=== PATIENT | female | born 1985 | race Caucasian/White ===

== ENCOUNTER 2017-06-25 13:56 | Emergency (ER) | payer SELFPAY ==
[2017-06-25 14:18] VITALS: TEMP 97; BMI 43.9
[2017-06-25] MEDS ORDERED: DIPHTH,PERTUSS(ACELL),TET 0.5 ML DISP.SYRIN IM ONE (14:22)
--- NOTE | 2017-06-25 14:22 | PDOC ---
Rapid Medical Evaluation Chief Complaint: Laceration Time Seen by Provider: 06/25/17 14:19 Medical Evaluation: Allergies Allergy/AdvReac Type Severity Reaction Status Date / Time No Known Allergies Allergy Verified 06/25/17 14:18 Vital Signs Temp Pulse Resp BP Pulse Ox 97 F L 114 H 20 143/114 99 06/25/17 14:13 06/25/17 14:13 06/25/17 14:13 06/25/17 14:13 06/25/17 14:13 06/25/17 14:19 The patient presents with a chief complaint of: Cut to the R ear. Pt. hit ear on end table. No LOC. Also R ear pain I have performed a brief in-person evaluation of this patient; Pertinent physical exam findings: 3cm laceration to R ear; cartilage involvement ? I have ordered the following: Boostrix The patient will proceed to the ED for further evaluation.
--- NOTE | 2017-06-25 15:02 | PDOC ---
History of Present Illness - General Chief Complaint: Laceration Stated Complaint: LACERATION Time Seen by Provider: 06/25/17 14:19 History Source: Patient Exam Limitations: No Limitations - History of Present Illness Initial Comments: This is a 31 YOF with h/o PCOS and pre-diabetes who presents c/o fall onto end table and right ear laceration sustained at about 1:30 pm today. She tripped on her son's X-box cable and fell, hitting her right ear on a wooden end table. The ear laceration bled immediately but the patient did not lose consciousness, vomiting, have altered mental status or confusion, hit her head, hurt her neck, or have numbness, tingling, focal weakness, difficulty walking/balancing, or other symptoms. She has a known right otitis media and is taking Amoxicillin for this, but otherwise has been feeling well lately. Her last Tdap was an unknown amount of time ago. Past History - Past Medical History Allergies/Adverse Reactions: Allergies Allergy/AdvReac Type Severity Reaction Status Date / Time No Known Allergies Allergy Verified 06/25/17 14:18 Home Medications: Ambulatory Orders Amoxicillin/Potassium Clav [Augmentin 500-125 Tablet] 1 each PO BID #10 tablet 06/25/17 Sertraline HCl [Zoloft -] 50 mg PO DAILY 06/25/17 COPD: No Diabetes: Yes Psychiatric Problems: Yes (depression) - Suicide/Smoking/Psychosocial Hx Smoking History: Never smoked Review of Systems - Review of Systems Able to Perform ROS?: Yes Constitutional: No: Chills, Fever, Unexplained wgt Loss HEENTM: Yes: Other (right external ear laceration, right middle ear infection). No: Nose Congestion, Throat Pain Respiratory: No: Cough, Shortness of Breath Cardiac (ROS): No: Chest Pain, Palpitations ABD/GI: No: Constipated, Diarrhea, Nausea, Vomiting : No: Burning, Dysuria Musculoskeletal: No: Back Pain, Neck Pain Integumentary: No: Bruising, Rash Neurological: No: Headache, Numbness, Tingling, Weakness, Dizziness Endocrine: No: Unexplained Weight Gain, Unexplained Weight Loss *Physical Exam - Vital Signs Last Vital Signs Temp Pulse Resp BP Pulse Ox 97 F L 114 H 20 143/114 99 06/25/17 14:13 06/25/17 14:13 06/25/17 14:13 06/25/17 14:13 06/25/17 14:13 Procedures - Laceration/Wound Repair Right Ear Wound Length: 2.6 to 5.0 cm Wound Explored: clean Wound's Depth, Shape: irregular Irrigated w/ Saline: Yes Betadine Prep: No Anesthesia: 1% Lidocaine w/ Epi Amount of Anesthetic (ccs): 5 Wound Repaired With: Sutures Suture Size/Type: 5:0, proline Layer Closure: Yes (cartilage) Deep Layer Suture Size/Type: 5:0, vycril Number of Deep Layer Sutures: 2 Splint Applied: Yes Type of Splint Applied: ear splint to prevent auricular hematoma Sling Applied: No *DC/Admit/Observation/Transfer Diagnosis at time of Disposition: Laceration of ear Qualifiers: Encounter type: initial encounter Laterality: right Qualified Code(s): S01.311A - Laceration without foreign body of right ear, initial encounter - Discharge Dispostion Disposition: HOME Condition at time of disposition: Stable Admit: No - Prescriptions Prescriptions: Amoxicillin/Potassium Clav [Augmentin 500-125 Tablet] 1 each PO BID #10 tablet - Referrals Referrals: Jorge Reynoso [Primary Care Provider] - - Patient Instructions Printed Discharge Instructions: DI for Laceration Repair Additional Instructions: You were seen in the ER for an ear laceration which involved the cartilage. We did a nerve block and also put a small amount of local anesthetic in the ear. We put dissolvable suture into the cartilage to keep it together in the right places. We also sutured the ear skin closed using a running suture. We put an ear splint on the ear (wrapped around your head) to prevent cauliflower ear. Please leave this ear splint on for two days and keep it clean and dry. We are sending a prescription for Augmentin to your pharmacy. Please pick this up and take the whole course (instead of your current course of antibiotics - stop that course altogether and start this new one tonight). Please take the whole course because cartilage can become infected easily and this can cause many complications. Please follow up with Plastic Surgery early next week (we are providing referral information in this packet). Return to the ER for any new or worsening symptoms. - Post Discharge Activity
[2017-06-25] MEDS ORDERED: LIDO 2%/EPI 1:200000 PRESRVFRE (20 ML SDVIAL) INF ONE (15:13)
--- NOTE | 2017-06-25 15:19 | PDOC ---
Attending Attestation - Resident Resident Name: Radha Neri - ED Attending Attestation I have performed the following: I have examined & evaluated the patient, The case was reviewed & discussed with the resident, I agree w/resident's findings & plan, Exceptions are as noted - HPI HPI: 06/25/17 15:14 Tripped on X-Box cord, End Table vs. EAR - Physicial Exam PE: 06/25/17 15:18 Ear laceration - Medical Decision Making 06/25/17 15:[address] Neri's Assessment and Plan
[2017-06-25] MEDS ORDERED: LIDOCAINE 1%/EPI 1:100000 (20 ML MULTI DOSE VIAL) ONE (15:26)
[2017-06-25 17:17] VITALS: BP 118/85; PULSE 92
== END 2017-06-25 18:32 | disposition home or self-care (01) ==
LOC: JER 13:56
PROC: 0HQ2XZZ Repair Right Ear Skin, External Approach (ICD-10-PCS; principal; 2017-06-25)
PROC: 3E0234Z Introduction of Serum, Toxoid and Vaccine into Muscle, Percutaneous Approach (ICD-10-PCS; 2017-06-25)
DX: S01.311A Laceration without foreign body of right ear, initial encounter (principal); W01.190A Fall on same level from slipping, tripping and stumbling with subsequent striking against furniture, initial encounter; Y93.89 Activity, other specified; Y92.018 Other place in single-family (private) house as the place of occurrence of the external cause; Y99.8 Other external cause status
CPT/HCPCS: 90715; 99282-25

== ENCOUNTER 2021-12-17 04:04 | Emergency (ER) | payer BC, OTHER ==
[2021-12-17 04:40] VITALS: BMI 40.2
[2021-12-17 06:44] LABS: BASO % 0.2 % (0-2.0); HEMATOCRIT 38.7 % (32.4-45.2); HEMOGLOBIN 13.6 GM/dL (10.7-15.3); MCH 31.1 pg (25.7-33.7); MCHC 35.1 g/dl (32.0-36.0); MEAN CELL VOLUME 88.6 fl (80-96); MEAN PLT VOLUME 7.9 fl (7.5-11.1); MONO % 5.6 % (3.8-10.2); NEUT % 65.2 % (42.8-82.8); PLATELET COUNT 199 10^3/uL (134-434); RBC 4.37 M/mm3 (3.60-5.2); WHITE BLOOD COUNT 7.7 K/mm3 (4.0-10.0)
[2021-12-17 07:00] LABS: VENOUS BASE EXCESS -2.1 mmol/L (-2-2); VENOUS O2 SATURATION 99.1 % (70-80); VENOUS PCO2 44.8 mmHg (38-52); VENOUS PH 7.342 (7.310-7.410)
[2021-12-17 07:02] LABS: PROTHROMBIN TIME (PATIENT) 11.5 SEC (9.7-13.0)
[2021-12-17 07:05] LABS: ACTIVATED PTT 30.7 SECONDS (25.2-36.5); CALCIUM 8.8 mg/dL (8.5-10.1)
[2021-12-17 07:06] LABS: ALBUMIN 3.2 g/dl (3.4-5.0); BLOOD UREA NITROGEN 8.8 mg/dL (7-18); MAGNESIUM 1.6 mg/dL (1.8-2.4)
[2021-12-17 07:09] LABS: BILIRUBIN,TOTAL 0.5 mg/dL (0.2-1); CREATININE 0.8 mg/dL (0.55-1.3)
[2021-12-17] MEDS ORDERED: ALBUTEROL SO4 2.5/IPRATROPIUM 0.5 INH SOL 3 ML VIAL.NEB. NEB ONE ×2 (07:09→07:37)
[2021-12-17] MEDS ORDERED: LACTATED RINGERS SOLUTION 1000 ML INFUS.BAG IV ONE (07:09)
[2021-12-17 10:04] LABS: EPI CELLS >36 /uL (0-25.1); HYALINE CASTS 4 /uL (0-3.1); URINE APPEARANCE CLOUDY; URINE BACTERIA 3248 /uL (0-1359); URINE BILIRUBIN NEGATIVE (NEGATIVE); URINE COLOR YELLOW; URINE GLUCOSE (UA) 3+ (NEGATIVE); URINE KETONE TRACE (NEGATIVE); URINE LEUK ESTERASE 1+ (NEGATIVE); URINE NITRITE NEGATIVE (NEGATIVE); URINE PROTEIN NEGATIVE (NEGATIVE); URINE RBC 12 /uL (0-23.9); URINE WBC 288 /uL (0-25.8)
[2021-12-17] MEDS ORDERED: CEFTRIAXONE 1 GM in DEXTROSE 5%-WATER - 100 ML IVPB ONE (10:32)
[2021-12-17] MEDS ORDERED: CEFTRIAXONE 1 GM/50 ML BAG ONE (12:13)
[2021-12-17 13:44] VITALS: BP 101/52; PULSE 91; TEMP 97.9
== END 2021-12-17 13:45 | disposition home or self-care (01) ==
LOC: JER 04:04
PROC: 3E0F7GC Introduction of Other Therapeutic Substance into Respiratory Tract, Via Natural or Artificial Opening (ICD-10-PCS; principal; 2021-12-17)
PROC: 3E03329 Introduction of Other Anti-infective into Peripheral Vein, Percutaneous Approach (ICD-10-PCS; 2021-12-17)
DX: R05.1 Acute cough (principal); E11.69 Type 2 diabetes mellitus with other specified complication
CPT/HCPCS: 0241U-QW; 36415; 71045-TC-FY; 80053; 81003; 82010; 82272; 82803; 82962; 83690; 83735; 84484; 84703; 85025; 85610; 85730; 87086; 93005; 93010; 99285-25

== ENCOUNTER 2023-07-13 19:47 | Emergency (ER) | payer SELFPAY ==
[2023-07-13 20:03] VITALS: BP 140/98; PULSE 92; RESP 16; TEMP 98.5; BMI 45.7
== END 2023-07-13 20:04 | disposition home or self-care (01) ==
LOC: FER 19:47
DX: U07.1 COVID-19 (principal)
CPT/HCPCS: 87635; 99283-25